=== PATIENT | female | born 1965 | race African-American/Black ===

== ENCOUNTER 2018-02-01 20:12 | Emergency (ER) | payer SELFPAY ==
[~2018-02-01] VITALS: Ht 157.5 cm; Wt 75.0 kg
[2018-02-02 00:28] LABS: BASOPHILS % 0.9 % (0.0-2.0); EOSINOPHILS % 3.7 % (0.0-5.0); HEMATOCRIT. 36.6 % (36.0-48.0); HEMOGLOBIN. 11.9 g/dL (12.0-16.0); LYMPHOCYTES % 39.7 % (20.0-50.0); MEAN CORPUSCULAR HEMOGLOBIN 25.5 pg (28.0-32.0); MEAN CORPUSCULAR VOLUME 78.9 fL (81.0-99.0); MEAN PLATELET VOLUME 8.8 fl (7.4-10.4); MONOCYTES % 7.7 % (2.0-8.0); PLATELET 248 x1000/uL (130-400); RED BLOOD CELL COUNT 4.65 mill/uL (4.2-5.4); RED CELL DISTRIBUTION WIDTH 16.1 % (11.6-14.6)
[2018-02-02 00:48] LABS: CHLORIDE 107 mEq/L (98-107)
[2018-02-02 03:00] VITALS: BP 180/90
== END 2018-02-02 03:01 | disposition home or self-care (01) ==
LOC: ER 20:12
DX: I10 Essential (primary) hypertension (principal); D50.9 Iron deficiency anemia, unspecified
CPT/HCPCS: 36415; 70450; 80053; 84484; 85025; 99285